=== PATIENT | male | born 1955 | race Caucasian/White ===

== ENCOUNTER 2018-06-10 20:55 | Inpatient (IN) | payer MEDICAID ==
[~2018-06-10] VITALS: Ht 170.2 cm; Wt 124.1 kg
[~2018-06-10 20:55] MED LIST: ALBU18HF INH; AMLO-145 PO; ASPI-817 PO; ATOR-2 PO; CARV25TA79 PO; CLON0.2T12 PO; CLOP75TA27 PO; GLYB2.5T2 PO; HYDR-3672 PO; ISOS60TA PO; LACT1CAP28 PO
[2018-06-10] MEDS ORDERED: DEXTROSE 5%-0.9% NACL 1,000 ML IV STA (21:03)
[2018-06-10] MEDS ORDERED: OCTREOTIDE 50 MCG INJ SC ONE (22:00)
[2018-06-10] MEDS ORDERED: DEXTROSE 50% 50 ML SYRINGE ONE (23:47)
--- NOTE | 2018-06-10 23:57 | HP ---
Date/Time of Note Date/Time of Note DATE: 06/10/18 TIME: 23:57 Assessment/Plan VTE Prophylaxis Pharmacological prophylaxis: heparin Assessment/Plan Assessment/Plan 1. Hypoglycemia, secondary to sulfonylurea -Hold glyburide -Dextrose as needed 2. Acute on CKD -Nephrology consult 3. HARI -Supplemental oxygen, bronchodilators, as needed BiPAP 4. Hypertension: Continue home meds. Adjust as needed 5. Dyslipidemia: Continue statin 6. CAD with stent: Continue home meds Result Diagram: 06/10/18212106/10/182121 Results 24hrs Laboratory Tests Test 06/10/18 21:04 06/10/18 21:22 06/10/18 22:42 06/10/18 23:45 Bedside Glucose 67 L 54 L 63 L White Blood Count 7.6 # Red Blood Count 3.27 L Hemoglobin 9.8 L Hematocrit 29.9 L Mean Corpuscular 91.4 Volume Mean Corpuscular 30.0 Hemoglobin Mean Corpuscular 32.8 Hemoglobin Concent Red Cell 15.0 H Distribution Width Platelet Count 281 # Mean Platelet Volume 11.1 H Immature 0.300 Granulocytes % Neutrophils % 76.7 Lymphocytes % 7.4 L Monocytes % 8.8 Eosinophils % 5.9 Basophils % 0.9 Nucleated Red Blood 0.0 Cells % Immature 0.020 Granulocytes # Neutrophils # 5.8 Lymphocytes # 0.6 L Monocytes # 0.7 Eosinophils # 0.5 Basophils # 0.1 Nucleated Red Blood 0.0 Cells # Sodium Level 137 Potassium Level 3.7 Chloride Level 110 Carbon Dioxide Level 19 L Anion Gap 8 Blood Urea Nitrogen 66 H Creatinine 4.94 H Est Glomerular 12 L Filtrat Rate mL/min Glucose Level 55 L Calcium Level 7.7 L Total Bilirubin 0.1 L Direct Bilirubin 0.00 Indirect Bilirubin 0.1 Aspartate Amino 15 Transf (AST/SGOT) Alanine 16 Aminotransferase (AL T/SGPT) Alkaline Phosphatase 76 Troponin I 0.040 Total Protein 5.5 L Albumin 2.8 L Globulin 2.70 Albumin/Globulin 1.03 Ratio Lipase 290 HPI/ROS Admit Date/Time Admit Date/Time Hx of Present Illness This is a 62-year-old morbidly obese male with a history of hypertension, type 2 diabetes, CKD, CAD with stent who was brought to the ER for altered mentation. When EMS arrived, he was oriented x1. Blood glucose was found to be 31. After treatments on the field, he becomes elevated and oriented x3. Patient has been taking sulfonylurea for diabetes. When presented to ER, POC was 67, blood glucose on BMP was 55. He has been given dextrose. Patient was recently admitted for shortness of breath with a chest x-ray showing pulmonary edema versus infiltrate. He was treated with IV antibiotic and also was BiPAP. His A1c at that time was 6.3. PMH/Family/Social Past Medical History Medical History: other (See HPI) Medications Current Medications Dextrose/Sodium Chloride 1,000 ml @ 100 mls/hr Q10H STAT IV Last administered on 06/10/18at 21:29; Admin Dose 100 MLS/HR; Start 06/10/18 at 21:03; Stop 06/11/18 at 07:02 Dextrose (D50w Syringe) 25 ml ONCE ONCE IV Last administered on 06/10/18at 23:49; Admin Dose 25 ML; Start 06/11/18 at 00:00; Stop 06/11/18 at 00:01 Coded Allergies: No Known Allergy (Unverified , 03/29/18) Past Surgical History Past Surgical Hx: other (See HPI) Family History Significant Family History: no pertinent family hx Social History Alcohol Use: none Smoking Status: Never smoker Drug Use: none Exam/Review of Systems Vital Signs Vitals Vital Signs Date Temp Pulse Resp B/P (MAP) Pulse Ox O2 O2 Flow FiO2 Time Delivery Rate 06/10/18 74 20 170/59 98 Room Air 22:51 (96) 06/10/18 98.4 21:06 Exam Constitutional: other (No acute distress. Answering questions appropriately) Head: normocephalic, atraumatic Respiratory: normal air movement Cardiovascular: regular rate and rhythm, nl pulses Gastrointestinal: soft Extremities: normal pulses BOSTON JAMES MD Jun 10, 2018 23:57
[2018-06-11] VITALS (16 sets, daily range): BP systolic 138–203; BP diastolic 70–93; PULSE 46–76; RESP 20; Ht 170.2 cm; Wt 124.1 kg
[2018-06-11] MEDS ORDERED: DEXTROSE 50% 50 ML SYRINGE IV ONE
[2018-06-11] MEDS ORDERED: ALBUTEROL HFA 8 GM INHALER INH PRN (00:30)
[2018-06-11] MEDS ORDERED: NACL 0.9% 3 ML SYG IV SCH (00:30)
[2018-06-11] MEDS ORDERED: ONDANSETRON 4 MG INJ IV PRN (00:30)
[2018-06-11] MEDS ORDERED: ALBUTEROL/IPRATROPIUM (NEB) 3 ML AMP HHN PRN (00:30)
[2018-06-11] MEDS ORDERED: ACETAMINOPHEN 325 MG TAB PO PRN (00:30)
--- NOTE | 2018-06-11 00:50 | ERD ---
ER Documentation Chief Complaint Chief Complaint ALOC;accu check 31 on scene; D10 given per EMS; up to 136. same recently. HPI This is a 62-year-old male with altered level of consciousness. He was found to have an Accu-Chek of 31 on scene. Given D50 by EMS with up to 136. Patient's had multiple episodes of hypoglycemia. He is on glyburide. Denies any incontinence. Denies any seizure-like activity. Denies any focal weakness upon arrival. He is alert and oriented x4 and a mental baseline upon arrival to the ER. ROS All systems reviewed and are negative except as per history of present illness. Medications Home Meds Active Scripts Isosorbide Mononitrate* (Isosorbide Mononitrate*) 60 Mg Tab.er.24h, 60 MG PO BID, #60 4 Refills Prov:LEANDER PERALTA S. 04/10/18 Hydralazine Hcl* (Apresoline*) 50 Mg Tab, 100 MG PO Q8, #90 TAB 4 Refills Prov:LEANDER PERALTA S. 04/10/18 Clonidine Hcl* (Catapres*) 0.2 Mg Tablet, 0.4 MG PO TID, #90 TAB 2 Refills Prov:LEANDER PERALTA S. 04/10/18 Amlodipine Besylate* (Amlodipine Besylate*) 5 Mg Tablet, 5 MG PO BID, #30 TAB 4 Refills Prov:LEANDER PERALTA S. 04/10/18 Albuterol Sulfate* (Ventolin HFA*) 18 Gm Hfa.aer.ad, 4 PUFF INH Q2H RESP THERAPY PRN for SHORTNESS OF BREATH, #1 BOTTLE 4 Refills Prov:LEANDER PERALTA S. 04/10/18 Atorvastatin* (Atorvastatin*) 80 Mg Tablet, 80 MG PO QHS, #30 TAB 4 Refills Prov:LEANDER PERALTA S. 04/10/18 Glyburide* (Glyburide*) 2.5 Mg Tablet, 2.5 MG PO WITH BREAKFAST, #30 TAB 3 Refills Prov:LEANDER PERALTA S. 04/10/18 Clopidogrel Bisulfate (Clopidogrel) 75 Mg Tablet, 75 MG PO DAILY, #30 TAB 6 Refills Prov:LEANDER PERALTA S. 04/10/18 Aspirin* (Aspirin* EC) 81 Mg Tablet.dr, 81 MG PO DAILY, #30 TAB 4 Refills Prov:LEANDER PERALTA S. 04/10/18 Carvedilol* (Carvedilol*) 25 Mg Tablet, 25 MG PO BID, #60 TAB 4 Refills Prov:LEANDER PERALTA S. 04/10/18 Reported Medications Isosorbide Mononitrate* (Isosorbide Mononitrate*) 60 Mg Tab.er.24h, 60 MG PO DAILY, TAB 03/29/18 Discontinued Scripts Lactobacillus Rhamnosus GG (Culturelle) 1 Each Capsule, 1 CAP PO BID, #60 CAP 2 Refills Prov:LEANDER PERALTA S. 04/10/18 Allergies Allergies: Coded Allergies: No Known Allergy (Unverified , 03/29/18) PMhx/Soc History of Surgery: No Anesthesia Reaction: No Hx Neurological Disorder: No Hx Respiratory Disorders: No Hx Cardiac Disorders: Yes (HTN) Hx Psychiatric Problems: No Hx Miscellaneous Medical Probl: Yes (Hypoglycemia) Hx Alcohol Use: No Hx Substance Use: No Hx Tobacco Use: No Smoking Status: Never smoker Physical Exam Vitals Vital Signs Date Temp Pulse Resp B/P (MAP) Pulse Ox O2 O2 Flow FiO2 Time Delivery Rate 06/10/18 98.4 71 23 183/86 100 21:06 (118) Physical Exam Const: No acute distress Head: Atraumatic Eyes: Normal Conjunctiva ENT: Normal External Ears, Nose and Mouth. Neck: Full range of motion. No meningismus. Resp: Clear to auscultation bilaterally Cardio: Regular rate and rhythm, no murmurs Abd: Soft, non tender, non distended. Normal bowel sounds Skin: No petechiae or rashes Back: No midline or flank tenderness Ext: No cyanosis, or edema Neur: Awake and alert Psych: Normal Mood and Affect Result Diagram: 06/10/18212106/10/182121 Results 24 hrs Laboratory Tests Test 06/10/18 21:04 06/10/18 21:22 Bedside Glucose 67 mg/dL White Blood Count 7.6 10^3/ul Red Blood Count 3.27 10^6/ul Hemoglobin 9.8 g/dl Hematocrit 29.9 % Mean Corpuscular Volume 91.4 fl Mean Corpuscular Hemoglobin 30.0 pg Mean Corpuscular Hemoglobin Concent 32.8 g/dl Red Cell Distribution Width 15.0 % Platelet Count 281 10^3/UL Mean Platelet Volume 11.1 fl Immature Granulocytes % 0.300 % Neutrophils % 76.7 % Lymphocytes % 7.4 % Monocytes % 8.8 % Eosinophils % 5.9 % Basophils % 0.9 % Nucleated Red Blood Cells % 0.0 /100WBC Immature Granulocytes # 0.020 10^3/ul Neutrophils # 5.8 10^3/ul Lymphocytes # 0.6 10^3/ul Monocytes # 0.7 10^3/ul Eosinophils # 0.5 10^3/ul Basophils # 0.1 10^3/ul Nucleated Red Blood Cells # 0.0 10^3/ul Sodium Level 137 mmol/L Potassium Level 3.7 mmol/L Chloride Level 110 mmol/L Carbon Dioxide Level 19 mmol/L Anion Gap 8 Blood Urea Nitrogen 66 mg/dl Creatinine 4.94 mg/dl Est Glomerular Filtrat Rate mL/min 12 mL/min Glucose Level 55 mg/dl Calcium Level 7.7 mg/dl Total Bilirubin 0.1 mg/dl Direct Bilirubin 0.00 mg/dl Indirect Bilirubin 0.1 mg/dl Aspartate Amino Transf (AST/SGOT) 15 IU/L Alanine Aminotransferase (ALT/SGPT) 16 IU/L Alkaline Phosphatase 76 IU/L Troponin I 0.040 ng/ml Total Protein 5.5 g/dl Albumin 2.8 g/dl Globulin 2.70 g/dl Albumin/Globulin Ratio 1.03 Lipase 290 U/L Current Medications Medications Dose Sig/Saul Start Time Status Last (Trade) Ordered Route PRN Stop Time Admin Dose Reason Admin 1,000 ml @ Q10H STAT 06/10/18 06/10/18 Dextrose/Sodi 100 mls/hr IV 21:03 21:29 um Chloride 06/11/18 07:02 Octreotide 50 mcg ONCE ONCE 06/10/18 DC 06/10/18 Acetate SC 22:00 22:48 (Sandostatin) 06/10/18 22:01 Procedures/MDM Emergency department course: Patient seen and Angela charges placed in bed from the evaluation. Had blood work done. Placed on a D10 drip. Given D50 as well. Placed on monitoring. Given octreotide as well subcutaneously. EKG: Rate/Rhythm: [Normal Sinus Rhythm] QRS, ST, T-waves: [No changes consistent w/ acute ischemia] Impression: [No evidence of ischemia or arrhythmia] Chest X-ray 1V Interpreted by me: Soft Tissue: No acute abnormali ties Bones: No acute abnormalities Mediastinum/Cardiac Silhouette/Lungs: [No acute abnormalities]. . . Medical decision making: This is a 62-year-old male with recurrent hypoglycemia on orals. Patient will be admitted to telemetry floor to the [facility]. Departure Diagnosis: Primary Impression: Hypoglycemia Condition: BOSTON Boland Jun 11, 2018 00:50
[2018-06-11] MEDS: AMLODIPINE 5 MG TAB PO SCH ×3 (01:17→21:53)
[2018-06-11] MEDS: DEXTROSE 5%-0.45% NACL 1,000 ML IV SCH ×2 (01:18→13:22)
[2018-06-11] MEDS: ISOSORBIDE MONONITRATE(SR)60 MG TAB PO SCH ×2 (02:53→21:52)
[2018-06-11] MEDS ORDERED: hydrALAzine 20 MG INJ IV PRN (03:00)
[2018-06-11] MEDS: ACCU-CHEK XX SCH ×5 (05:00→21:00)
[2018-06-11] MEDS: CLOPIDOGREL 75 MG TAB PO SCH (08:59)
[2018-06-11] MEDS: ASPIRIN (EC) 81 MG TAB PO SCH (09:00)
[2018-06-11] MEDS ORDERED: ISOSORBIDE MONONITRATE(SR)60 MG TAB PO SCH (09:00)
[2018-06-11] MEDS: HEPARIN 5,000 UNIT/1 ML VIAL SC SCH ×2 (09:23→22:29)
--- NOTE | 2018-06-11 14:57 | PDOCDIS ---
Discharge Instructions CONDITION [id number] Patient Condition: [id number] Stable HOME CARE INSTRUCTIONS: [id number] Diet Instructions: [id number] UP/APPOINTMENTS Follow-up Plan Follow-up with your primary care physician in 2 weeks. OTHER ORDERS: Other Orders: 1. Resume home medications. Stop taking glyburide (oral diabetic medicine). 2. Follow a low-cholesterol, low carbohydrate, low sodium, low potassium diet. 3. Resume activities as tolerated. 4. Follow-up with your primary care physician in 2 weeks. 5. Please go to the nearest emergency room if you have any chest pain, shortness of breath, worsening bilateral lower extremity swelling, or any other unusual signs/symptoms. KYREE OHARA NP Jun 11, 2018 14:57
--- NOTE | 2018-06-11 18:43 | PN ---
Date/Time of Note Date/Time of Note DATE: 06/11/18 TIME: 18:43 Assessment/Plan VTE Prophylaxis Risk score (from Ns)>0 risk: 2 [place]CD applied [place] [facility] [place] No SCD contraindicated: other Pharmacological prophylaxis: heparin Lines/Catheters IV Catheter Type (from [facility]): Peripheral IV Urinary Cath still in place: No Assessment/Plan Hospital Course SUBJECTIVE: Denies any complaints. OBJECTIVE: Physical Exam General: Obese, 62 year-old male lying in bed in no apparent distress. HEENT: Normocephalic, atraumatic. Eyes: Anicteric sclerae, conjunctivae clear. ENT: Nasal septum midline, oral mucosa moist. Neck supple, no JVD noticed. Respiratory: Bilaterally clear breath sounds. No use of accessory muscles of respiration. No adventitious breath sounds. Cardiovascular: S1, S2 heard. Regular rate and rhythm. Abdomen: Soft, nontender, and nondistended. Bowel sounds positive in all 4 quadrants. Genitourinary: Deferred. Extremities: No cyanosis, no clubbing. Bilateral lower extremity edema. Peripheral pulses palpable. Neurologic: Cranial nerves II through XII grossly intact. The patient is awake, alert, and oriented. Skin: Normal skin turgor. No skin rashes. Labs & Vitals per chart ASSESSMENT & PLAN This is a 62-year-old male with comorbidities including CKD, hypertension, CAD status post stenting, morbid obesity, and diabetes mellitus. The patient was brought in by paramedics because of acute onset confusion with evidence of hypoglycemia at the field. The patient was admitted to inpatient setting for further treatment and evaluation. 1. Acute encephalopathy. -Most probably toxic metabolic secondary to underlying hypoglycemia. -Resolved. 2. Sulfonylurea induced hypoglycemia. -Stop sulfonylureas. -Latest hemoglobin A1c 5.8. -No need for insulin therapy. 3. Essential hypertension with hypertensive urgency. -Continue antihypertensives. -Lower BP gradually. 4. Chronic kidney disease -Monitor BUN and creatinine closely. -Avoid nephrotoxic medications. 5. CAD, status post coronary artery stenting. -Continue aspirin. 6. Obesity. -BMI of 42 kg/m. -Weight reduction advised. 7. Fluids, electrolytes, and nutrition. - Low-cholesterol, carbohydrate controlled diet. 8. -DVT prophylaxis. -Subcutaneous heparin. 9. Plan. -Continue to monitor blood pressure closely. -Obtain bilateral lower extremity venous Doppler study. -Discharge the patient home if bilateral lower extremity Doppler study is negative. The patient was seen in collaboration with Dr. Aguero. -. Result Diagram: 06/11/18 0605 06/11/18 0605 Results 24hrs Laboratory Tests Test 06/10/18 21:04 06/10/18 21:22 06/10/18 22:42 06/10/18 23:45 Bedside Glucose 67 L 54 L 63 L White Blood Count 7.6 # Red Blood Count 3.27 L Hemoglobin 9.8 L Hematocrit 29.9 L Mean Corpuscular 91.4 Volume Mean Corpuscular 30.0 Hemoglobin Mean Corpuscular 32.8 Hemoglobin Concent Red Cell 15.0 H Distribution Width Platelet Count 281 # Mean Platelet Volume 11.1 H Immature 0.300 Granulocytes % Neutrophils % 76.7 Lymphocytes % 7.4 L Monocytes % 8.8 Eosinophils % 5.9 Basophils % 0.9 Nucleated Red Blood 0.0 Cells % Immature 0.020 Granulocytes # Neutrophils # 5.8 Lymphocytes # 0.6 L Monocytes # 0.7 Eosinophils # 0.5 Basophils # 0.1 Nucleated Red Blood 0.0 Cells # Sodium Level 137 Potassium Level 3.7 Chloride Level 110 Carbon Dioxide Level 19 L Anion Gap 8 Blood Urea Nitrogen 66 H Creatinine 4.94 H Est Glomerular 12 L Filtrat Rate mL/min Glucose Level 55 L Calcium Level 7.7 L Total Bilirubin 0.1 L Direct Bilirubin 0.00 Indirect Bilirubin 0.1 Aspartate Amino 15 Transf (AST/SGOT) Alanine 16 Aminotransferase (AL T/SGPT) Alkaline Phosphatase 76 Troponin I 0.040 Total Protein 5.5 L Albumin 2.8 L Globulin 2.70 Albumin/Globulin 1.03 Ratio Lipase 290 Test 06/11/18 00:02 06/11/18 01:16 06/11/18 05:10 06/11/18 06:05 Bedside Glucose 97 116 126 White Blood Count 7.3 Red Blood Count 3.28 L Hemoglobin 9.8 L Hematocrit 29.9 L Mean Corpuscular 91.2 Volume Mean Corpuscular 29.9 Hemoglobin Mean Corpuscular 32.8 Hemoglobin Concent Red Cell 15.2 H Distribution Width Platelet Count 277 Mean Platelet Volume 11.1 H Immature 0.300 Granulocytes % Neutrophils % 64.4 Lymphocytes % 18.6 Monocytes % 8.9 Eosinophils % 6.8 Basophils % 1.0 Nucleated Red Blood 0.0 Cells % Immature 0.020 Granulocytes # Neutrophils # 4.7 Lymphocytes # 1.4 Monocytes # 0.7 Eosinophils # 0.5 Basophils # 0.1 Nucleated Red Blood 0.0 Cells # Sodium Level 137 Potassium Level 4.0 Chloride Level 112 H Carbon Dioxide Level 18 L Anion Gap 7 Blood Urea Nitrogen 63 H Creatinine 4.85 H Est Glomerular 12 L Filtrat Rate mL/min Glucose Level 127 # Hemoglobin A1c 5.8 Calcium Level 7.7 L Magnesium Level 2.1 Total Bilirubin 0.2 Direct Bilirubin 0.00 Indirect Bilirubin 0.2 Aspartate Amino 12 L Transf (AST/SGOT) Alanine 11 L Aminotransferase (AL T/SGPT) Alkaline Phosphatase 63 Total Protein 5.2 L Albumin 2.6 L Globulin 2.60 Albumin/Globulin 1.00 Ratio Test 06/11/18 08:57 06/11/18 12:44 Bedside Glucose 122 135 Exam/Review of Systems Exam Vitals Vital Signs Date Temp Pulse Resp B/P (MAP) Pulse Ox O2 O2 Flow FiO2 Time Delivery Rate 06/11/18 63 16:09 06/11/18 97.6 20 138/72 97 15:34 (94) 06/11/18 Room Air 00:00 Intake and Output 06/10/18 06/10/18 06/11/18 1515:00 23:00 07:00 IntakeIntake Total 1000 ml OutputOutput Total 800 ml BalanceBalance 200 ml Results Results 24hrs Laboratory Tests Test 06/10/18 21:04 06/10/18 21:22 06/10/18 22:42 06/10/18 23:45 Bedside Glucose 67 L 54 L 63 L White Blood Count 7.6 # Red Blood Count 3.27 L Hemoglobin 9.8 L Hematocrit 29.9 L Mean Corpuscular 91.4 Volume Mean Corpuscular 30.0 Hemoglobin Mean Corpuscular 32.8 Hemoglobin Concent Red Cell 15.0 H Distribution Width Platelet Count 281 # Mean Platelet Volume 11.1 H Immature 0.300 Granulocytes % Neutrophils % 76.7 Lymphocytes % 7.4 L Monocytes % 8.8 Eosinophils % 5.9 Basophils % 0.9 Nucleated Red Blood 0.0 Cells % Immature 0.020 Granulocytes # Neutrophils # 5.8 Lymphocytes # 0.6 L Monocytes # 0.7 Eosinophils # 0.5 Basophils # 0.1 Nucleated Red Blood 0.0 Cells # Sodium Level 137 Potassium Level 3.7 Chloride Level 110 Carbon Dioxide Level 19 L Anion Gap 8 Blood Urea Nitrogen 66 H Creatinine 4.94 H Est Glomerular 12 L Filtrat Rate mL/min Glucose Level 55 L Calcium Level 7.7 L Total Bilirubin 0.1 L Direct Bilirubin 0.00 Indirect Bilirubin 0.1 Aspartate Amino 15 Transf (AST/SGOT) Alanine 16 Aminotransferase (AL T/SGPT) Alkaline Phosphatase 76 Troponin I 0.040 Total Protein 5.5 L Albumin 2.8 L Globulin 2.70 Albumin/Globulin 1.03 Ratio Lipase 290 Test 06/11/18 00:02 06/11/18 01:16 06/11/18 05:10 06/11/18 06:05 Bedside Glucose 97 116 126 White Blood Count 7.3 Red Blood Count 3.28 L Hemoglobin 9.8 L Hematocrit 29.9 L Mean Corpuscular 91.2 Volume Mean Corpuscular 29.9 Hemoglobin Mean Corpuscular 32.8 Hemoglobin Concent Red Cell 15.2 H Distribution Width Platelet Count 277 Mean Platelet Volume 11.1 H Immature 0.300 Granulocytes % Neutrophils % 64.4 Lymphocytes % 18.6 Monocytes % 8.9 Eosinophils % 6.8 Basophils % 1.0 Nucleated Red Blood 0.0 Cells % Immature 0.020 Granulocytes # Neutrophils # 4.7 Lymphocytes # 1.4 Monocytes # 0.7 Eosinophils # 0.5 Basophils # 0.1 Nucleated Red Blood 0.0 Cells # Sodium Level 137 Potassium Level 4.0 Chloride Level 112 H Carbon Dioxide Level 18 L Anion Gap 7 Blood Urea Nitrogen 63 H Creatinine 4.85 H Est Glomerular 12 L Filtrat Rate mL/min Glucose Level 127 # Hemoglobin A1c 5.8 Calcium Level 7.7 L Magnesium Level 2.1 Total Bilirubin 0.2 Direct Bilirubin 0.00 Indirect Bilirubin 0.2 Aspartate Amino 12 L Transf (AST/SGOT) Alanine 11 L Aminotransferase (AL T/SGPT) Alkaline Phosphatase 63 Total Protein 5.2 L Albumin 2.6 L Globulin 2.60 Albumin/Globulin 1.00 Ratio Test 06/11/18 08:57 06/11/18 12:44 Bedside Glucose 122 135 Medications Medication Current Medications IV Flush (NS 3 ml) 3 ml PER PROTOCOL IV ; Start 06/11/18 at 00:30 Ondansetron HCl (Zofran Inj) 4 mg Q6H PRN IV NAUSEA/VOMITING; Start 06/11/18 at 00:30 Acetaminophen (Tylenol Tab) 650 mg Q6H PRN PO .PAIN 1-3 OR TEMP; Start 06/11/18 at 00:30 Heparin Sodium (Porcine) (Heparin (5000 Units/1ml)) 5,000 unit Q12 SC Last administered on 06/11/18 09:23; Admin Dose 5,000 UNIT; Start 06/11/18 at 09:00 Albuterol/ Ipratropium (Duoneb) 3 ml Q2H RESP THERAPY PRN HHN SHORTNESS OF BREATH; Start 06/11/18 at 00:30 Amlodipine Besylate (Norvasc) 5 mg BID PO Last administered on 06/11/18 09:01; Admin Dose 5 MG; Start 06/11/18 at 00:30 Aspirin (Halfprin) 81 mg DAILY PO Last administered on 06/11/18 09:00; Admin Dose 81 MG; Start 06/11/18 at 09:00 Atorvastatin Calcium (Lipitor) 80 mg QHS PO ; Start 06/11/18 at 21:00 Carvedilol (Coreg) 25 mg BID PO Last administered on 06/11/18 09:01; Admin Dose 25 MG; Start 06/11/18 at 09:00 Clonidine (Catapres) 0.4 mg TID PO Last administered on 06/11/18 12:45; Admin Dose 0.4 MG; Start 06/11/18 at 09:00 Clopidogrel Bisulfate (plaVIX) 75 mg DAILY PO Last administered on 06/11/18 08:59; Admin Dose 75 MG; Start 06/11/18 at 09:00 Hydralazine HCl (Apresoline) 100 mg Q8 PO Last administered on 06/11/18 14:09; Admin Dose 100 MG; Start 06/11/18 at 00:30 Hydralazine HCl (Apresoline) 10 mg Q4H PRN IV SBP > 160 Last administered on 06/11/18 06:56; Admin Dose 10 MG; Start 06/11/18 at 03:00 Isosorbide Mononitrate (Imdur) 60 mg BID PO Last administered on 06/11/18 02:53; Admin Dose 60 MG; Start 06/11/18 at 03:00 Diagnostic Test (Pha) (Accu-Chek) 1 ea Q4 XX ; Start 06/11/18 at 05:00 KYREE OHARA NP Jun 11, 2018 18:43
[2018-06-11] MEDS: ATORVASTATIN 80 MG TAB PO SCH ×2 (21:00→21:52)
[2018-06-12] VITALS (7 sets, daily range): BP systolic 134–147; BP diastolic 66–71; PULSE 51–83; RESP 20
[2018-06-12] MEDS: ACCU-CHEK XX SCH ×4 (01:00→13:00)
[2018-06-12] MEDS: CLOPIDOGREL 75 MG TAB PO SCH (09:14)
[2018-06-12] MEDS: ISOSORBIDE MONONITRATE(SR)60 MG TAB PO SCH (09:14)
[2018-06-12] MEDS: ASPIRIN (EC) 81 MG TAB PO SCH (09:14)
[2018-06-12] MEDS: AMLODIPINE 5 MG TAB PO SCH (09:15)
[2018-06-12] MEDS: HEPARIN 5,000 UNIT/1 ML VIAL SC SCH (09:17)
--- NOTE | 2018-06-12 10:34 | DS ---
Date/Time of Note Date/Time of Note DATE: 06/12/18 TIME: 10:31 Discharge Summary Admission/Discharge Info Admit Date/Time Jun 10, 2018 at 22:00 Discharge Date/Time Discharge Diagnosis 1. Sulfonylurea induced hypoglycemia. 2. Essential hypertension with hypertensive urgency. 3. Chronic kidney disease 4. CAD, status post coronary artery stenting. 5. Obesity. BMI of 42 kg/m. 6. Normocytic, normochromic anemia. Patient Condition: Stable Procedures Bilateral Lower Extremity Venous Doppler Study IMPRESSION: No sonographic evidence for deep venous thrombosis in the bilateral lower extremities. CXR IMPRESSION: 1. Persistent right lung airspace disease and pleural effusion. 2. Cardiomegaly and increased mild pulmonary vascular congestion. Hx of Present Illness This is a 62-year-old male with comorbidities including CKD, hypertension, CAD status post stenting, morbid obesity, and diabetes mellitus. The patient was brought in by paramedics because of acute onset confusion with evidence of hypoglycemia at the field. The patient was admitted to inpatient setting for further treatment and evaluation. Hospital Course In the emergency room, the patient had a blood glucose of 67. The patient was started on dextrose containing IV fluids. The patient was also given a single dose of Sandostatin subcutaneously for sulfonylurea induced hypoglycemia. The patient was admitted to the telemetry floor. All the patient's oral hypoglycemic agents were put on hold. The patient's hemoglobin A1c was found to be 5.8, indicating no active diabetes mellitus. Therefore, the patient was not maintained on any sliding scale insulin either. The patient was instructed to to avoid using sulfonylureas. However, the patient was encouraged to follow a low carbohydrate diet. The patient had evidence of hypertensive urgency. The patient's blood pressure was lowered gradually. The patient's blood pressure was later stabilized with the same antihypertensive regimen that the patient has at home. The patient has underlying chronic kidney disease. His BUN and creatinine were monitored closely. Nephrotoxic drugs were avoided on this patient. He has history of CAD and he is status post coronary artery stenting. The patient was on aspirin and statins. The patient was noticed to have normocytic, normochromic anemia. The the patient's H&H remained stable. The patient's anemia could be secondary to his underlying chronic kidney disease. The patient is also morbidly obese with a BMI of more than 42 kg/m. The patient also probably has underlying obstructive sleep apnea. The patient was advised on weight reduction. The patient was also complaining of bilateral lower extremity edema. The patient's bilateral lower extremity venous Doppler study was negative for any DVT. The patient's edema could be contributed by his underlying renal failure. The patient had a stable hospital course. The patient is stable to be discharged home, to be followed up with outpatient nurse wound care. Discharge Instructions 1. Resume home medications. Stop taking glyburide (oral diabetic medicine). 2. Follow a low-cholesterol, low carbohydrate, low sodium, low potassium diet. 3. Resume activities as tolerated. 4. Follow-up with your primary care physician in 2 weeks. 5. Please go to the nearest emergency room if you have any chest pain, shortness of breath, worsening bilateral lower extremity swelling, or any other unusual signs/symptoms. The patient verbalized understanding of his discharge instructions. The patient was seen in collaboration with Dr. Aguero. -. Home Meds Active Scripts Isosorbide Mononitrate* (Isosorbide Mononitrate*) 60 Mg Tab.er.24h, 60 MG PO BID, #60 4 Refills Prov:LEANDER PERALTA S. 04/10/18 Hydralazine Hcl* (Apresoline*) 50 Mg Tab, 100 MG PO Q8, #90 TAB 4 Refills Prov:LEANDER PERALTA S. 04/10/18 Clonidine Hcl* (Catapres*) 0.2 Mg Tablet, 0.4 MG PO TID, #90 TAB 2 Refills Prov:LEANDER PERALTA S. 04/10/18 Amlodipine Besylate* (Amlodipine Besylate*) 5 Mg Tablet, 5 MG PO BID, #30 TAB 4 Refills Prov:LEANDER PERALTA S. 04/10/18 Albuterol Sulfate* (Ventolin HFA*) 18 Gm Hfa.aer.ad, 4 PUFF INH Q2H RESP THERAPY PRN for SHORTNESS OF BREATH, #1 BOTTLE 4 Refills Prov:LEANDER PERALTA S. 04/10/18 Atorvastatin* (Atorvastatin*) 80 Mg Tablet, 80 MG PO QHS, #30 TAB 4 Refills Prov:LEANDER PERALTA S. 04/10/18 Clopidogrel Bisulfate (Clopidogrel) 75 Mg Tablet, 75 MG PO DAILY, #30 TAB 6 Refills Prov:LEANDER PERALTA S. 04/10/18 Aspirin* (Aspirin* EC) 81 Mg Tablet.dr, 81 MG PO DAILY, #30 TAB 4 Refills Prov:LEANDER PERALTA S. 04/10/18 Carvedilol* (Carvedilol*) 25 Mg Tablet, 25 MG PO BID, #60 TAB 4 Refills Prov:LEANDER PERALTA S. 04/10/18 Discontinued Reported Medications Isosorbide Mononitrate* (Isosorbide Mononitrate*) 60 Mg Tab.er.24h, 60 MG PO DAILY, TAB 03/29/18 Discontinued Scripts Lactobacillus Rhamnosus GG (Culturelle) 1 Each Capsule, 1 CAP PO BID, #60 CAP 2 Refills Prov:LEANDER PERALTA S. 04/10/18 Glyburide* (Glyburide*) 2.5 Mg Tablet, 2.5 MG PO WITH BREAKFAST, #30 TAB 3 Refills Prov:LEANDER PERALTA S. 04/10/18 Follow-up Plan Follow-up with your primary care physician in 2 weeks. Primary Care Provider Care Physician No Primary Time spent on discharge: > 30 minutes Pending Labs Laboratory Tests Test 06/11/18 12:44 06/11/18 21:49 06/12/18 01:57 06/12/18 05:56 Bedside 135 133 172 133 Glucose mg/dL (70-220) mg/dL (70-220) mg/dL (70-220) mg/dL (70-220) Test 06/12/18 06:17 06/12/18 09:12 White Blood 6.0 Count 10^3/ul (4.8-10 .8) Red Blood 3.08 Count 10^6/ul (4.70-6 .10) Hemoglobin 9.3 g/dl (14.0-18.0 ) Hematocrit 28.6 % (42.0-52.0) Mean 92.9 Corpuscular fl (82.0-101.0) Volume Mean 30.2 Corpuscular pg (29.0-33.0) Hemoglobin Mean 32.5 Corpuscular g/dl (32.0-37.0 Hemoglobin Conc ) ent Red Cell 15.6 Distribution % (11.5-14.5) Width Platelet Count 275 10^3/UL (140-41 5) Mean Platelet 11.2 Volume fl (7.4-10.4) Immature 0.200 Granulocytes % % (0.001-0.429) Neutrophils % 62.2 % (39.0-77.0) Lymphocytes % 17.0 % (15.0-51.0) Monocytes % 9.9 % (0.0-11.0) Eosinophils % 9.4 % (0.0-7.0) Basophils % 1.3 % (0.0-2.0) Nucleated Red 0.0 Blood Cells % /100WBC (0.0-0. 0) Immature 0.010 Granulocytes # 10^3/ul (0.0-0. 031) Neutrophils # 3.7 10^3/ul (1.6-7. 5) Lymphocytes # 1.0 10^3/ul (0.8-2. 9) Monocytes # 0.6 10^3/ul (0.3-0. 9) Eosinophils # 0.6 10^3/ul (0.0-0. 5) Basophils # 0.1 10^3/ul (0.0-0. 1) Nucleated Red 0.0 Blood Cells # 10^3/ul (0.0-0. 0) Sodium Level 135 mmol/L (135-144 ) Potassium 4.2 Level mmol/L (3.5-5.1 ) Chloride Level 108 mmol/L (97-110) Carbon Dioxide 19 Level mmol/L (21-31) Anion Gap 8 (5-13) Blood Urea 63 mg/dl (7-20) Nitrogen Creatinine 5.01 mg/dl (0.61-1.2 4) Est Glomerular 12 mL/min (>60) Filtrat Rate mL/min Glucose Level 130 mg/dl (70-220) Calcium Level 7.6 mg/dl (8.4-10.2 ) Phosphorus 6.7 Level mg/dl (2.5-4.9) Magnesium 2.0 Level mg/dl (1.7-2.5) Bedside 151 Glucose mg/dL (70-220) KYREE OHARA NP Jun 12, 2018 10:34
== END 2018-06-12 14:19 | disposition home or self-care (01) | DRG 638 ==
LOC: E/R 20:55 → TEL 22:00 → EDBEDREQSVC 22:21 → EDBEDREQ 22:21 → TEL 06-11 00:20
PROVIDERS: ADMIT Internal Medicine; ATTEND Internal Medicine
DX: E11.649 Type 2 diabetes mellitus with hypoglycemia without coma (principal); Z68.41 Body mass index [BMI] 40.0-44.9, adult; G93.40 Encephalopathy, unspecified; E66.01 Morbid (severe) obesity due to excess calories; I16.0 Hypertensive urgency; D64.9 Anemia, unspecified; E78.5 Hyperlipidemia, unspecified; E11.22 Type 2 diabetes mellitus with diabetic chronic kidney disease; N17.9 Acute kidney failure, unspecified; N18.9 Chronic kidney disease, unspecified; I12.9 Hypertensive chronic kidney disease with stage 1 through stage 4 chronic kidney disease, or unspecified chronic kidney disease; G47.33 Obstructive sleep apnea (adult) (pediatric); I25.10 Atherosclerotic heart disease of native coronary artery without angina pectoris; Z95.5 Presence of coronary angioplasty implant and graft; T38.3X5A Adverse effect of insulin and oral hypoglycemic [antidiabetic] drugs, initial encounter
CPT/HCPCS: 36415; 71045; 80048; 80053; 82962; 83036; 83690; 83735; 84100; 84484; 85025; 87081; 93005; 93970; J0360; J1644; J7042